=== PATIENT | male | born 1930 | race Caucasian/White ===

== ENCOUNTER → 2016-10-20 | Outpatient (CLI) | payer OTHER ==
[~2016-10-20] MED LIST: HYDROCHLOROTHIA25 M1 PO; LISINOPRIL40 MG PO; LOPERAMIDE 2 MG2 M1 PO; MULTIVITAMINS PO; NORCO 5-325 TA1 EACH PO; SYNTHROID175 MCG PO; ZPAK PO
== END ==
LOC: RAD 11:40
DX: J18.9 Pneumonia, unspecified organism (principal); R07.9 Chest pain, unspecified

== ENCOUNTER → 2016-11-16 | Outpatient (CLI) | payer OTHER | LOC: RAD 15:13 | DX: R05 Cough (principal) ==